=== PATIENT | female | born 2000 | race Caucasian/White ===

== ENCOUNTER 2024-04-05 04:28 | Inpatient (IN) ==
[2024-04-05] MEDS ORDERED: miSOPROStoL 200 MCG TABLET BC PRN (04:36)
[2024-04-05] MEDS ORDERED: NIFEdipine 10 MG CAPSULE PO PRN (04:36)
[2024-04-05] MEDS ORDERED: TRANEXAMIC ACID IN NACL 1,000 MG/100 ML BAG IV PRN (04:36)
[2024-04-05] MEDS ORDERED: miSOPROStoL 200 MCG TABLET PR PRN (04:36)
[2024-04-05] MEDS ORDERED: lidocaine 1% 20 ML MDV ID PRN (04:36)
[2024-04-05] MEDS ORDERED: METHYLERGONOVINE 0.2 MG/ML VIAL IM PRN (04:36)
[2024-04-05] MEDS ORDERED: OXYTOCIN/SODIUM CHLORIDE 500 ML IV PRN (04:36)
[2024-04-05] MEDS ORDERED: SODIUM CHLORIDE FLUSH 0.9% 10 ML SYRINGE IVP PRN (04:36)
[2024-04-05] MEDS ORDERED: LABETALOL 20 MG/4 ML SYRINGE IVP PRN ×3 (04:36)
[2024-04-05] MEDS ORDERED: fentaNYL 100 MCG/2 ML VIAL IVP PRN (04:36)
[2024-04-05] MEDS ORDERED: OXYTOCIN 10 UNIT/ML VIAL IM PRN (04:36)
[2024-04-05] MEDS ORDERED: hydrALAZINE INJ 20 MG/ML VIAL IVP PRN (04:36)
[2024-04-05] MEDS ORDERED: TERBUTALINE 1 MG/ML VIAL SUBQ PRN (04:36)
[2024-04-05] MEDS ORDERED: SODIUM CHLORIDE FLUSH 0.9% 10 ML SYRINGE IVP SCH (05:00)
[2024-04-05 05:06] LABS: BASOPHILS % (AUTO) 0.2 %; EOSINOPHILS # (AUTO) 0.1 10^3/uL (0.0-0.7); EOSINOPHILS % (AUTO) 0.5 %; HCT - HEMATOCRIT 38.2 % (37.0-47.0); HGB - HEMOGLOBIN 12.8 g/dL (12.0-16.0); LYMPHOCYTES # (AUTO) 2.5 10^3/uL (1.5-3.5); LYMPHOCYTES % (AUTO) 18.9 %; MEAN CORPUSCULAR HEMOGLOBIN 29.6 pg (27.0-31.0); MEAN CORPUSCULAR HGB CONC 33.5 g/dL (32.0-36.0); MEAN CORPUSCULAR VOLUME 88.2 fL (81.0-99.0); MONOCYTES # (AUTO) 0.7 10^3/uL (0.0-1.0); MONOCYTES % (AUTO) 5.4 %; NEUTROPHILS % (AUTO) 74.7 %; PLT - PLATELET COUNT 328 10^3/uL (130-450); RED BLOOD COUNT 4.33 10^6/uL (4.20-5.40); RED CELL DISTRIBUTION WIDTH 13.9 % (12.0-15.0); WHITE BLOOD COUNT 13.4 x10^3/uL (4.8-10.8)
[2024-04-05 05:20] LABS: RUPTURE OF MEMBRANES PLUS POSITIVE (NEGATIVE)
[2024-04-05 05:20] LABS: ALBUMIN 3.5 g/dL (3.2-5.5); ALBUMIN/GLOBULIN RATIO 1.1 (1.0-2.2); BILIRUBIN,TOTAL 0.2 mg/dL (0.2-1.0); CALCIUM 10.1 mg/dL (8.5-10.3); CREATININE 0.5 mg/dL (0.6-1.3); POTASSIUM 3.8 mmol/L (3.5-4.5); TOTAL PROTEIN 6.6 g/dL (6.4-8.9)
--- NOTE | 2024-04-05 05:39 | HISTORY & PHYSICAL EXAMINATION ---
Admit History Visit Reason Visit Reason: Contractions and Membranes rupture : 1 Parity: 0 Premature: 0 Ectopic: 0 : 0 Care: positive [facility] (Transferred in from [facility] @ 22wks) Risk/History: positive None Complications This : positive None Smoking Status: Never smoker Mother's Labs Mother's Blood Type: positive A Mother's RH: positive Positive GBS: positive Group B Step Negative Rubella Status: positive Immune Other Maternal History Other Maternal History: Prepregnancy BMI- 42 Current BMI- 48 HPI Current : 24YO @ 40wks 6 days by sure LMP concordant with 9wk US presents for evaluation of suspected labor. Noticed mild cramping and leaking, clear fluid at 0110 this morning. Contractions have slowly increased in frequency and intensity. Now breathing through contractions every 4-7 minutes. Coping well. Continues to feel small amounts of leaking fluid with good movement. No vaginal bleeding. Uncomplicated care with CNMs included a normal 32 week growth US (EFW 67th%). Planning an unmedicated . Partner, Varinder, is present and supportive. Meds/Allgy Home Medications Ambulatory Orders Medication Instructions Recorded Confirmed No Known Home Medications 04/05/24 04/05/24 Allergies Allergies Allergy/AdvReac Type Severity Reaction Status Date / Time ibuprofen Allergy Severe Anaphylaxis Verified 04/05/24 06:20 latex Allergy Mild Rash Verified 04/05/24 06:20 Sulfa (Sulfonamide Allergy Unknown Unknown Verified 04/05/24 06:20 Antibiotics) Penicillins AdvReac Intermediate Rash Verified 04/05/24 06:20 adhesive tape AdvReac Mild erythema Verified 04/05/24 06:20 [facility] Surgical History Surgical History (Updated 04/05/24 @ 05:56 by Gill Etienne DNP) Hx of arthroscopy of left knee Family History Family History (Updated 04/05/24 @ 05:57 by Gill Etienne DNP) Mother Breast cancer Depressed High blood pressure Social History Social History Smoking Status: Never smoker Do you dip or chew tobacco?: No POLST Patient has POLST: No Physical Abdominal Exam Vital Signs: BP 124/81, HR 82, T 97.9F Contraction Frequency (min/apart): 6 Contraction Intensity: positive Moderate Uterine Resting Tone: positive Soft Monitoring Heart Rate Baseline: 130 Strip Review: positive Category I Presentation Presentation: positive Vertex Vaginal Exam Membranes: positive Membranes ruptured Dilation (in cm): deferred until more active Plan for Labor Plan For Labor I expect patient to be DC'd or transferred within 96 hours.: Yes Plan for Labor: Admit, routine labor orders. Labor support PRN. Reassess in 4 hours or sooner. CE after 2 hours of strong contractions. Conclusion/Plan Problem List (1) Morbid obesity with BMI of 45.0-49.9, adult: Plan: Anesthesia notified (2) PROM (premature rupture of membranes): Plan: Term nullipara Early labor EDS-hypermobile GBS prophylaxis not indicated Significant medication allergies Cat I FHR Qualifiers: PROM onset of labor timing: onset of labor within 24 hours of rupture Lab Results 04/05/24 04:55 04/05/24 04:55
--- NOTE | 2024-04-05 08:33 | PROVIDER PROGRESS NOTE ---
Labor Progress Note Uterine Monitoring Uterine Monitoring Mode: positive External toco Contraction Frequency (min/apart): 1-4 Contraction Intensity: positive Mild to moderate Uterine Resting Tone: positive Soft Monitoring Monitor Mode: positive External ultrasound Heart Rate Baseline: 130 Heart Rate Variability: positive Moderate (6-25 bmp) Accelerations: positive Present, 15x15 Decelerations: positive None Strip Review: positive Category I Vaginal Exam Dilation (in cm): 1.5 Effacement (%): 50 Station: -3 Cervical Position: Posterior Labor Progress Note Labor Progress Note/Additional Text: S: Has been laboring in bed and on the ball trying to be restful in the early hours. Considering getting in the tub soon. O: as above. VS: BP 133/77, HR 76, T 36.9C Oral A: Term nullipara PROM x 6 hours without sx of infection Early labor Cat I FHR P: Continue expectant management of PROM. Labor support PRN. May switch to intermittent auscultation. Reassess in 4 hours or sooner, PRN.
--- NOTE | 2024-04-05 13:12 | PHARMACY PROGRESS NOTE ---
Best Possible Medication History Admit Date and Time: 04/05/24 [id number] Home Medications Medication Instructions Recorded Confirmed Type cetirizine 10 mg capsule (Zyrtec) 10 mg PO DAILY PRN allergy symptoms 04/05/24 04/05/24 History magnesium 200 mg tablet 200 mg PO DAILY 04/05/24 04/05/24 History vit no.95-ferrous 1 tab PO DAILY 04/05/24 04/05/24 History fumarate 28 mg-folic acid 800 mcg tablet ( Multivitamins) Processed by: Pharmacy (Medication Reconciliation completed by Painting And Coating WorkerSilvia) Medications reviewed in ED?: No Medication History completed: Yes Patient Interview: Completed Secondary Source(s): Insurance records [facility] Statement: As the person ultimately responsible for medication therapy, providers are able to order a medication from an existing home medication list in [facility] via the "Reconcile Routine" prior to Confirmation of that medication by support manager. Such practice is discouraged except when the physician, in their clinical judgment, deems that a medical need exists for a medication without regard to previous use.
--- NOTE | 2024-04-05 13:40 | PROVIDER PROGRESS NOTE ---
Labor Progress Note Uterine Monitoring Uterine Monitoring Mode: positive Palpation
[2024-04-05] MEDS: OXYTOCIN/SODIUM CHLORIDE 500 ML IV SCH (13:50)
[2024-04-05] MEDS: LACTATED RINGERS 1,000 ML IV PRN (13:51)
--- NOTE | 2024-04-05 13:52 | PROVIDER PROGRESS NOTE ---
Labor Progress Note Uterine Monitoring Uterine Monitoring Mode: positive Palpation Contraction Frequency (min/apart): 2-8 Contraction Intensity: positive Mild to moderate Uterine Resting Tone: positive Soft Monitoring Monitor Mode: positive Doppler/auscultation Heart Rate Baseline: 135 Strip Review: positive Category I Vaginal Exam Dilation (in cm): 1.5 Effacement (%): 75 Cervical Position: Posterior Labor Progress Note Labor Progress Note/Additional Text: S: Tori has been upright and moving, gone for a walk, completed a circuit and taken a bath. She continues to feel contractions. They have slightly increased in intensity and feel more targeted to her cervix, but overall still mild. Open to starting pitocin at this time. Her and her mother are supportive at her side. O: As above and VS: BP 115/68, HR 96, T 98.1F Oral A: Term nullipara Early Labor PROM x 12 hours without sx of infection FHR Reassuring by IA P: Counseled on recommendation for pitocin augmentation at this time to reduce risk of developing an infection with prolonged ROM and patient agrees. Begin pitocin augmentation. Labor support PRN. Reassess in 4 hours or sooner, PRN.
[2024-04-05] MEDS ORDERED: LACTATED RINGERS 1,000 ML IV SCH (15:00)
--- NOTE | 2024-04-05 18:21 | PROVIDER PROGRESS NOTE ---
Labor Progress Note Uterine Monitoring Uterine Monitoring Mode: positive External toco Contraction Frequency (min/apart): 2 Contraction Intensity: positive Strong Uterine Resting Tone: positive Soft Other Uterine Monitoring: pitocin @ 4mu/min Monitoring Monitor Mode: positive External ultrasound Heart Rate Baseline: 135 Heart Rate Variability: positive Moderate (6-25 bmp) Accelerations: positive Present, 15x15 Decelerations: positive None Strip Review: positive Category I Vaginal Exam Dilation (in cm): 3 Effacement (%): 90 Station: -3 Cervical Position: Posterior Labor Progress Note Labor Progress Note/Additional Text: S: Breathing through and occasionally moaning with string contractions for several hours now. Initiated NO2 prior to this check. Coping well, but definitely tired. Partner remains supportive at her side providing good labor support. O: as above and VS: BP 128/57 (recently labile BPs with 2 elevated, not sustained), HR 67, T 36.7C A: Term nullipara PROM x 17 hours without sx of infection Approaching active labor, augmented Cat I FHR P: OB back-up aware of patient status and plan of care. Continue pitocin augmentation. Labor support, PRN. Reassess in 4 hours or sooner, PRN.
--- NOTE | 2024-04-05 23:05 | PROVIDER PROGRESS NOTE ---
Labor Progress Note Uterine Monitoring Uterine Monitoring Mode: positive External toco Contraction Frequency (min/apart): 4 Contraction Intensity: positive Strong Uterine Resting Tone: positive Soft Monitoring Monitor Mode: positive External ultrasound Heart Rate Baseline: 155 Heart Rate Variability: positive Moderate (6-25 bmp) Accelerations: positive Present, 15x15 Decelerations: positive None Strip Review: positive Category I Vaginal Exam Dilation (in cm): 9.5 Effacement (%): 100 Station: 0 Labor Progress Note Labor Progress Note/Additional Text: S: Utilizing NO2 with some relief. Made rapid progress and pitocin was slowly decreased from max dose of 5mu/min to 1mu/min. Started feeling rectal pressure with a spontaneous urge to push at 2132. CE at that time was 8-9cm. Continued to labor and push for about an hour to AL at which time she was checked again and encouraged to try the tub again for some relief. Now laboring in the tub and pushing less frequently. O: As above and VS: 135/75, HR 96, T 36.8C A: Term nullipara Approaching second stage PROM x 22 hours without sx of infection Cat I FHR P: Continue to encourage relaxation until strong urge to push. Continuous labor support. Anticipate second stage soon.
[2024-04-06] MEDS ORDERED: LIDOCAINE 2%-EPI 1:100000 20 ML MDV ONE (01:21)
[2024-04-06] MEDS ORDERED: ROPIVACAINE 0.2% 200 MG/100 ML BAG EP ONE (01:22)
--- NOTE | 2024-04-06 02:03 | ANESTHESIA PROCEDURE NOTE ---
Pre-Anesthesia VS, & Labs Diagnosis Surgical Diagnosis:: active labor Procedure Procedure: Vaginal delivery Vitals Vital Signs: Temp Pulse Resp BP 36.6 C 79 20 124/81 04/05/24 04:59 04/05/24 04:59 04/05/24 04:59 04/05/24 04:59 Height (in): 5 ft 6 in Weight (kg): 135 kg Body Mass Index: 48.0 BMI Classification: Morbidly Obese NPO Last Fluid Intake: clear liquids Is Patient ?: Yes Lab Results Current Lab Results: Laboratory Tests 04/05/24 06:10: Blood Type Recheck A POSITIVE 04/05/24 04:55: WBC 13.4 H, RBC 4.33, Hgb 12.8, Hct 38.2, MCV 88.2, MCH 29.6, MCHC 33.5, RDW 13.9, Plt Count 328, MPV 10.0, Neut # (Auto) 10.0 H, Lymph # (Auto) 2.5, [place] # (Auto) 0.7, Eos # (Auto) 0.1, Baso # (Auto) 0.0, Absolute Nucleated RBC 0.00, Nucleated RBC % 0.0, Sodium 133 L, Potassium 3.8, Chloride 104, Carbon Dioxide 20 L, Anion Gap 9.0, BUN 15, Creatinine 0.5 L, Estimated GFR (MDRD) 149, Glucose 85, Calcium 10.1, Total Bilirubin 0.2, AST 14, ALT 10, Alkaline Phosphatase 116, Total Protein 6.6, Albumin 3.5, Globulin 3.1, Albumin/Globulin Ratio 1.1, Blood Type A POSITIVE, Antibody Screen NEGATIVE Lab results reviewed: Yes 04/05/24 04:55 04/05/24 04:55 Meds/Allgy Home Medications Ambulatory Orders Medication Instructions Recorded Confirmed cetirizine 10 mg capsule (Zyrtec) 10 mg PO DAILY PRN allergy symptoms 04/05/24 04/05/24 magnesium 200 mg tablet 200 mg PO DAILY 04/05/24 04/05/24 vit no.95-ferrous 1 tab PO DAILY 04/05/24 04/05/24 fumarate 28 mg-folic acid 800 mcg tablet ( Multivitamins) Allergies Allergies Allergy/AdvReac Type Severity Reaction Status Date / Time ibuprofen Allergy Severe Anaphylaxis Verified 04/05/24 06:20 latex Allergy Mild Rash Verified 04/05/24 06:20 Sulfa (Sulfonamide Allergy Unknown Unknown Verified 04/05/24 06:20 Antibiotics) Penicillins AdvReac Intermediate Rash Verified 04/05/24 06:20 adhesive tape AdvReac Mild erythema Verified 04/05/24 06:20 PFSH Medical History Medical History (Updated 04/06/24 @ 02:02 by Suzie Medley CRNA) Morbid obesity with BMI of 45.0-49.9, adult Adithya-Danlos syndrome Surgical History Surgical History (Updated 04/05/24 @ 05:56 by Gill Etienne DNP) Hx of arthroscopy of left knee Family History Family History (Updated 04/05/24 @ 05:57 by Gill Etienne DNP) Mother Breast cancer Depressed High blood pressure Social History Social History Smoking Status: Never smoker Do you dip or chew tobacco?: No POLST Patient has POLST: No Anesthesia Exam (Expanded) Exam General: Alert, Oriented x3 and Severe distress Dental: WNL Mouth Openin Fingerbreadth Neck Mobility: Normal Mallampati classification: III Thyromental Distance: 4-6 cm Mental/Cognitive Status: Alert/Oriented X3 and Normal for patient Plan Plan Anesthesia Type: Epidural Consent for Procedure(s) Verified and Reviewed: Yes Code Status: Attempt Resuscitation ASA Classification ASA classification: 2-Mild systemic disease Is this case an emergency?: No
[2024-04-06] MEDS ORDERED: ROPIVACAINE 0.2% 200 MG/100 ML BAG EP PRN (02:04)
[2024-04-06] MEDS ORDERED: ONDANSETRON 4 MG/2 ML VIAL IVP PRN (02:04)
[2024-04-06] MEDS ORDERED: ePHEDrine 50 MG/ML VIAL IVP PRN (02:04)
--- NOTE | 2024-04-06 04:55 | DELIVERY NOTE ---
Delivery Note Labor Labor: positive Augmented by oxytocin Infant Delivery Method Delivery Method: positive Spontaneous vaginal delivery Presentation Presentation: positive Vertex and ELIJAH - left occiput anterior Nuchal Cord Nuchal Cord: positive Present (x1, loose w/ compound left hand) and Reduced Amniotic Fluid Description Amniotic Fluid Description: positive Light meconium Laceration Laceration: positive 1st degree, Labial and Perineal Suture Suture Type: positive Chromic Suture Size: positive 3-0 Delivery Outcome Delivery Date: 04/06/24 Delivery Time: 04:08 Delivery Outcome: positive Livebirth [place] : positive Placed in direct skin contact with mother, Suctioned, Stimulated, [place] used and Warmer used sex: positive Female Cord Cord: positive 3 vessels Placenta Placenta: positive Intact, Spontaneous and Meconium stained Estimated Blood Loss Estimated Blood Loss (in cc): 100 Post Delivery Events Post Delivery Events: positive No post delivery events Delivery Comments (Free Text/Narrative) Delivery Comments (Free Text/Narrative): After 12 hours of PROM, pitocin augmentation was initiated (max dose 5mu/min) and labor became more active. Total PROM x 27 hours. Tori struggled with an early spontaneous urge to push and was at 9.5cm for 4 hours. After receiving an epidural, she was able to achieve pain relief and relax. Pushing was initiated at AL/C/+2. RT was called to standby for meconium stained amniotic fluid noted with AROM of forebag. Strong maternal efforts with coaching led to NSVB of a viable baby girl in ELIJAH position with a single loose nuchal cord and a nuchal left arm/compound left hand. was placed on maternal abdomen for drying and skin to skin. Remaining 30 units of pitocin in 500mL LR was started at 250mL/hr for AMTSL. After 90 seconds, the cord was double clamped by CNM and cut by FOB so could go to warmer for evaluation and suction. Apgars 7/8. Cord blood sample was collected. Gentle cord traction and a single maternal push led to spontaneous, Schultze delivery of an apparently intact, meconium stained placenta, membranes and 3VC. Fundus immediately firm and bleeding minimal. Straight cath was performed to drain bladder. A 1st degree perineal laceration and a right labial laceration were repaired with 3.0 Chromic in the usual fashion under adequate epidural anesthesia. QBL 100mL> Both mother and baby stable and skin to skin as I left the room.
[2024-04-06] MEDS ORDERED: OXYTOCIN/SODIUM CHLORIDE 500 ML IV PRN (08:24)
[2024-04-06] MEDS ORDERED: SIMETHICONE CHEW 80 MG TABLET PO PRN (08:24)
[2024-04-06] MEDS ORDERED: LABETALOL 5 MG/1 ML 20 ML MDV IVP PRN (08:24)
[2024-04-06] MEDS: DOCUSATE SODIUM 100 MG CAPSULE PO SCH (09:43)
[2024-04-06] MEDS: ACETAMINOPHEN 500 MG TABLET PO PRN (09:43)
--- NOTE | 2024-04-06 10:35 | PROVIDER PROGRESS NOTE ---
Subjective Subjective Subjective: S: Bonding well with baby. Bleeding decreased. She is urinating without difficulty. Has not yet had BM. is supportive at the bedside. Experiencing significant nipple discomfort with nursing even with use of nipple shield. She states she is feeling very tired and over stimulated and feels this may be contributing. She is feeling sore at her perineum after waking from a 3 hour nap and is hoping for some additional relief after taking Tylenol. O: Heart RRR w/o M/G/R, lungs CTAB, abdomen soft and nontender with fundus firm at U, perineum intact, light lochia rubra, bilateral LE's trace edema A: 24yo -->P1 day of delivery s/p TSVD viable female infant Normal recovery P: Continue routine care and medications. Evaluate for discharge home tomorrow Current Medications Current Medications Current Medications: Current Medications Generic Name Dose Route Start Last Admin Trade Name Freq PRN Reason Stop Dose Admin Acetaminophen 1,000 mg 04/06/24 08:24 04/06/24 09:43 Acetaminophen 500 Mg Tablet PO 1,000 mg Q8HR PRN Administration Mild Pain or Fever>38C(100.4F) Docusate Sodium 100 mg 04/06/24 09:00 04/06/24 09:43 Docusate Sodium 100 Mg Capsule PO 100 mg BID ERICA Administration Ephedrine Sulfate 5 mg 04/06/24 02:04 Ephedrine 50 Mg/Ml Vial IVP Q5M PRN For SBP<100;give until SBP>100 Fentanyl 50 mcg 04/05/24 04:36 Fentanyl 100 Mcg/2 Ml Vial IVP Q1H PRN Severe Pain (score 7-10) Hydralazine HCl 5 - 10 mg 04/05/24 04:36 Hydralazine Inj 20 Mg/Ml Vial IVP Q20M PRN SBP> or= 160 OR DBP> or= 110 Protocol Lactated Ringer's 500 mls @ 999 mls/hr 04/05/24 04:36 04/05/24 13:51 Lr IV 125 mls/hr PRN PRN Administration distress Oxytocin/Sodium Chloride 500 mls @ 999 mls/hr 04/05/24 04:36 Pitocin/Sodium Chloride IV PRN PRN POST- HEMORR PREVENTION Protocol 999 MILLIUNIT/MIN Tranexamic Acid 1,000 mg in 100 mls @ 600 mls/hr 04/05/24 04:36 Tranexamic 1,000 Mg/100ml-Nacl IV Q30M PRN EBL >1200mL and within 3hr Oxytocin/Sodium Chloride 500 mls @ 1 mls/hr 04/05/24 13:38 04/05/24 18:46 Pitocin/Sodium Chloride IV 5 milliunit/min TITR ERICA 5 mls/hr Titration Protocol 1 MILLIUNIT/MIN Lactated Ringer's 1,000 mls @ 125 mls/hr 04/05/24 15:00 Lr IV .Q8H ERICA Ropivacaine 200 mg in 100 mls @ 0 mls/hr 04/06/24 02:04 Naropin 0.2% EP PRN PRN PAIN Protocol Per Protocol Oxytocin/Sodium Chloride 500 mls @ 999 mls/hr 04/06/24 08:24 Pitocin/Sodium Chloride IV PRN PRN POST- HEMORR PREVENTION Protocol 999 MILLIUNIT/MIN Labetalol HCl 20 - 80 mg 04/05/24 04:36 Labetalol 20 Mg/4 Ml Syringe IVP Q10M PRN SBP> or= 160 OR DBP> or= 110 Protocol Labetalol HCl 20 mg 04/05/24 04:36 Labetalol 20 Mg/4 Ml Syringe IVP .ONCE PRN SBP> or= 160 OR DBP> or= 110 Protocol Labetalol HCl 20 - 40 mg 04/05/24 04:36 Labetalol 20 Mg/4 Ml Syringe IVP Q10M PRN SBP> or= 160 OR DBP> or= 110 Protocol Labetalol HCl 20 - 80 mg 04/06/24 08:24 Labetalol 5 Mg/1 Ml 20 Ml Mdv IVP Q10M PRN SBP> or= 160 OR DBP> or= 110 Protocol Lidocaine HCl 20 ml 04/05/24 04:36 Lidocaine 1% 20 Ml Mdv ID 04/08/24 04:36 .ONCE PRN PERINEAL REPAIR Methylergonovine Maleate 0.2 mg 04/05/24 04:36 Methylergonovine 0.2 Mg/Ml Vial IM .ONCE PRN Hemorrhage Misoprostol 600 mcg 04/05/24 04:36 Misoprostol 200 Mcg Tablet BC .ONCE PRN Hemorrhage Misoprostol 800 mcg 04/05/24 04:36 Misoprostol 200 Mcg Tablet ND .ONCE PRN Hemorrhage Nifedipine 10 - 20 mg 04/05/24 04:36 Nifedipine 10 Mg Capsule PO Q20M PRN SBP> or= 160 OR DBP> or= 110 Protocol Ondansetron HCl 4 mg 04/06/24 02:04 Ondansetron 4 Mg/2 Ml Vial IVP Q6HR PRN Nausea / Vomiting Oxytocin 10 unit 04/05/24 04:36 Oxytocin 10 Unit/Ml Vial IM .ONCE PRN Step One if no IV access. Simethicone 80 mg 04/06/24 08:24 Simethicone Chew 80 Mg Tablet PO TID PRN Gas Sodium Chloride 10 ml 04/05/24 04:36 Sodium Chloride Flush 0.9% 10 Ml Syringe IVP PRN PRN NEEDED PER PROVIDER ORDERS Sodium Chloride 10 ml 04/05/24 05:00 Sodium Chloride Flush 0.9% 10 Ml Syringe IVP Q8H ERICA Terbutaline Sulfate 0.25 mg 04/05/24 04:36 Terbutaline 1 Mg/Ml Vial SUBQ .ONCE PRN Tachystole Objective Vital Signs/Intake & Output Intake & Output: Intake & Output 04/03/24 04/04/24 04/05/24 04/06/24 23:59 23:59 23:59 23:59 Intake Total 15 / 15 Output Total 1200 / 1200 Balance 15 / 15 -1200 / -1200 Weight (kg) 135.171 kg 135 kg Lab Results 04/05/24 04:55 04/05/24 04:55 Assessment/Plan Problem List (1) Morbid obesity with BMI of 45.0-49.9, adult: (2) PROM (premature rupture of membranes): Qualifiers: PROM onset of labor timing: onset of labor within 24 hours of rupture
[2024-04-06] MEDS ORDERED: oxyCODONE 5 MG TABLET PO PRN (12:10)
[2024-04-06 12:51] LABS: BASOPHILS % (AUTO) 0.1 %; EOSINOPHILS % (AUTO) 0.1 %; LYMPHOCYTES % (AUTO) 14.4 %; MEAN CORPUSCULAR HEMOGLOBIN 29.3 pg (27.0-31.0); MEAN CORPUSCULAR HGB CONC 33.3 g/dL (32.0-36.0); MEAN CORPUSCULAR VOLUME 87.8 fL (81.0-99.0); MEAN PLATELET VOLUME 9.9 fL (7.9-10.8); MONOCYTES # (AUTO) 0.9 10^3/uL (0.0-1.0); MONOCYTES % (AUTO) 6.7 %; NEUTROPHILS # (AUTO) 10.9 10^3/uL (1.5-6.6); NEUTROPHILS % (AUTO) 78.4 %; PLT - PLATELET COUNT 300 10^3/uL (130-450)
[2024-04-06 13:04] LABS: ALBUMIN 3.4 g/dL (3.2-5.5); ALBUMIN/GLOBULIN RATIO 1.2 (1.0-2.2); BILIRUBIN,TOTAL 0.4 mg/dL (0.2-1.0); CALCIUM 9.3 mg/dL (8.5-10.3); CREATININE 0.5 mg/dL (0.6-1.3); POTASSIUM 3.9 mmol/L (3.5-4.5); TOTAL PROTEIN 6.2 g/dL (6.4-8.9)
[2024-04-07] MEDS: SIMETHICONE CHEW 80 MG TABLET PO PRN (08:45)
[2024-04-07] MEDS: MAGNESIUM OXIDE 400 MG TABLET PO SCH (09:06)
[2024-04-07 09:12] VITALS: TEMP 97.7; O2SAT 98
--- NOTE | 2024-04-07 14:01 | Discharge Summary ---
Discharge Summary HOSPITAL COURSE Hospital Course: Date of Admission: 04/05/2024 Date of Discharge: 04/07/2024 Diagnosis on Admission: 1. Term nullipara 2. Early labor 3. EDS-hypermobile 4. GBS prophylaxis not indicated 5. Significant medication allergies 6. Cat I FHR Diagnosis on Discharge: 1. 24yo PPD#1 s/p TSVD viable female 2. 3. Normal recovery 1. Brief History: She is a patient of [facility] who presented on 04/05/2024 with premature rupture of membranes. Cervix was 1.5/50/-3 and vertex. Pitocin initiated for augmentation of labor with a maximum infusion rate of 5mu/min. She progressed to spontaneously deliver a viable female on 04/06/2024 @ . Perineum was noted to have a 1st degree laceration which was repaired using a 3- [address]-1 needle in standard fashion and under sterile conditions. Apgars were 7/8 at 1 and 5 minutes respectively. QBL 100 mL. She has been doing well in her course. She is ambulating and tolerating a regular diet. She is urinating without difficulty and her lochia is normal. Her pain is well controlled with oral medications. She will be discharged home today on day #1 with instructions to continue taking her vitamin while and to continue taking Tylenol over the counter as needed for pain management. She intends to follow up with [facility] in 4 days for blood pressure check and then again in 1-2 weeks for routine visit or sooner if needed. She has been given precautions to call if she has any worsening fevers, chills, abdominal pain, increased vaginal bleeding or foul smelling vaginal lochia. Physical Exam: Normocephalic, atraumatic. Heart RRR w/o M/G/R, lungs CTAB, abdomen soft and nontender with fundus firm at U, perineum intact, light lochia rubra, bilateral LE's no edema. Mood is good. ALLERGIES Allergies Allergy/AdvReac Type Severity Reaction Status Date / Time ibuprofen Allergy Severe Anaphylaxis Verified 04/07/24 10:14 latex Allergy Mild Rash Verified 04/07/24 10:14 Sulfa (Sulfonamide Allergy Unknown Unknown Verified 04/07/24 10:14 Antibiotics) Penicillins AdvReac Intermediate Rash Verified 04/07/24 10:14 adhesive tape AdvReac Mild erythema Verified 04/07/24 10:14 MEDICATIONS Ambulatory Orders Medication Instructions Recorded Confirmed cetirizine 10 mg capsule (Zyrtec) 10 mg PO DAILY PRN allergy symptoms 04/05/24 04/05/24 magnesium 200 mg tablet 200 mg PO DAILY 04/05/24 04/05/24 vit no.95-ferrous 1 tab PO DAILY 04/05/24 04/05/24 fumarate 28 mg-folic acid 800 mcg tablet ( Multivitamins) LABS 04/06/24 12:45 04/06/24 12:45 Discharge Plan Discharge Patient Disposition: 01 Home, Self Care Prescriptions: Continued magnesium 200 mg tablet 200 mg PO DAILY PNV cmb#95-ferrous fumarate-FA [ Multivitamins] 28 mg iron- 800 mcg tablet 1 tab PO DAILY Zyrtec 10 mg capsule 10 mg PO DAILY PRN (Reason: allergy symptoms) Print Language: Wolof Patient Instructions: Vaginal After
[2024-04-07 15:17] VITALS: BP 138/64
--- NOTE | 2024-04-07 17:20 | Labor Flowsheet ---
Labor Flowsheet Datetime Report Generated by CPN: 04/07/2024 17:19 Datetime: 04/07/2024 15:12 VITAL SIGNS NBP Sys/Marlene/Mean (mmHg): 138 : 64 : 80 Pulse: 69 Datetime: 04/07/2024 07:00 Stage of : Datetime: 04/06/2024 05:30 Respirations: 18 Datetime: 04/06/2024 05:15 SpO2 (%): 98 Temperature (C): 36.7 Datetime: 04/06/2024 04:15 LaborFlag: Labor Datetime: 04/06/2024 04:02 UTERINE ACTIVITY Monitor Mode: External Monitor Interventions for UA: Nucla Adjusted Frequency (min): 1-2 Quality: Strong Duration (sec): 50-70 Resting Tone (Palpate): Relaxed ASSESSMENT A Monitor Mode: External US FHR Baseline Rate : 135 FHR Baseline Changes: No Baseline Change Variability: Moderate 6-25 bpm Accelerations: 15X15 Decelerations: Early; Variable Category: Category II PATIENT CARE Oxygen Method: Room Air Pushing Progress: with Pushing; Pushing Effectively with Contractions Datetime: 04/06/2024 03:45 Monitor Interventions for FHR: Ultrasound Adjusted Actions for Decelerations: Trendelenberg Pushing Position: Pushing with Contractions Datetime: 04/06/2024 03:02 STAGE 2 Pushing: Coached on Pushing; Urge to Push Datetime: 04/06/2024 03:00 VAGINAL EXAM Dilatation (cm): 10.0 Effacement (%): 100 Station: -2 Amniotic Fluid Color: Light Meconium Amniotic Fluid Amount: Moderate Amniotic Fluid Odor: Normal Vaginal Bleeding: Normal Show Cervix, Consistency: Soft Cervix, Position: Posterior Datetime: 04/06/2024 02:02 Pain Presence: Intermittent Pain Type: Cramping; Contraction Datetime: 04/06/2024 01:46 Comments: on left side after epidural Pain Relief Measures: Epidural Given Comfort Measures: Breathing/Relaxation Epidural Procedure: Completed Epidural Procedure Other: Pump Started Anesthesia Level Check: T9 Datetime: 04/06/2024 01:30 Anesthesia Comments: local given Datetime: 04/06/2024 01:28 PROCEDURE TIME OUT Procedure Verify: Correct Patient Identity; Correct Side and Site are Marked; Accurate Procedure Co nsent Form; Agreement on Procedure to be Done; Correct Patient Position; Relevant Images and Results are Properly Labeled and Displayed; Addressed Need to Administer Antibiotics or Fluids for Irrigation ; Safety Precautions Based on Patient History or Medication Use ANESTHESIA Anesthesia Plans: Epidural Epidural Positioning: Sitting Datetime: 04/06/2024 01:23 COMMUNICATION Communication: Provider at Bedside Notification Reason: Other Communication Comments: anaethisia at bedside Datetime: 04/06/2024 00:51 Pain Assessment Comments: anaethisia called Datetime: 04/06/2024 00:49 Pain Coping: Requesting Pain Medication or Epidural; Crying MEDICATIONS Pitocin (milliunits): Decreased to @ 1 Datetime: 04/05/2024 23:26 Membrane Status: Ruptured Membrane Comments: forerbag ARom Datetime: 04/05/2024 23:14 Pain Location: Abdomen; Back Datetime: 04/05/2024 22:59 Stage 2 Comments: SVE done Anterior lip Datetime: 04/05/2024 22:54 Patient Care Comments: sitting in the ytub Datetime: 04/05/2024 21:59 Contraction Comments: pushing Datetime: 04/05/2024 21:44 Membranes Rupture Method: Spontaneous Headache: Denies Datetime: 04/05/2024 21:10 Exam by: M Lowell Vaginal Exam Comments: BBOW Datetime: 04/05/2024 20:31 Provider Reviewed Strip: Yes Datetime: 04/05/2024 20:00 Breath Sounds, Left: Clear and Equal Breath Sounds, Right: Clear and Equal Patient Position/Activity: Walking I/O Interventions: Ice Chips Given; Clear Liquids Given Datetime: 04/05/2024 19:19 MATERNAL ASSESSMENT Level of Consciousness: Alert DTR's/Clonus: DTRs 2+ Nausea/Vomiting: Denies RUQ Epigastric Pain: Denies Datetime: 04/05/2024 18:59 Pattern: Normal: <= 5 Contractions in 10 Minutes Datetime: 04/05/2024 17:00 Temperature Route: Oral Datetime: 04/05/2024 14:01 Pitocin Checklist: At Least 1 Acceleration of 15 bpm x 15 Seconds in 30 Minutes or Adequate Variabi lity; No More than 1 Late Deceleration Occurred in Past 30 Minutes; No More than 2 Variable Decelerat ions > 60 Seconds in Duration and decreasing >60 bpm in 30 minutes; No More than 5 Uterine Contractio ns in 10 Minutes for any 20 Minute Interval; Uterus Palpates Soft between Contractions Datetime: 04/05/2024 11:50 PAIN Pain Scale: 5 Datetime: 04/05/2024 06:23 Membranes Ruptured Date/Time: 04/04/2024 01:10 Datetime: 04/05/2024 05:27 Provider Notified (Name): Gill M., CNM
== END 2024-04-07 15:45 | disposition home or self-care (01) | DRG 807 ==
LOC: WFO 04:28 → FBP 04:32
PROVIDERS: ADMIT Obstetrics & Gynecology; ATTEND Nurse Practitioner Obstetrics & Gynecology
DX: O77.0 Labor and delivery complicated by meconium in amniotic fluid; O69.81X0 Labor and delivery complicated by cord around neck, without compression, not applicable or unspecified; O32.6XX0 Maternal care for compound presentation, not applicable or unspecified; O99.214 Obesity complicating childbirth; Z37.0 Single live birth; E66.01 Morbid (severe) obesity due to excess calories; O42.02 Full-term premature rupture of membranes, onset of labor within 24 hours of rupture; O70.0 First degree perineal laceration during delivery; Z3A.40 40 weeks gestation of pregnancy